=== PATIENT | female | born 1985 ===

== ENCOUNTER 2019-05-12 21:44 | Emergency (ER) | payer SELFPAY ==
[2019-05-12] MEDS ORDERED: ONDANSETRON 4 MG/2 ML VIAL ONE (23:25)
[2019-05-12] MEDS ORDERED: NA CHLORIDE 0.9% 1,000 ML ONE (23:25)
[2019-05-12 23:44] LABS: Absolute Lymphocytes (CBC) 2.2 K/uL (0.7-4.9); Basophils % 0.5 % (0-1.3); Hematocrit 37.1 % (36.0-45.0); Lymphocytes % 14.6 % (15.3-44.8); MPV 8.8 fL (7.6-11.3); RBC Red Blood Cell Count 4.42 M/uL (3.86-4.86)
[2019-05-12 23:52] LABS: Urine Blood 1+ (NEG); Urine Glucose NEGATIVE (NEG); Urine Protein 1+ (NEG)
[2019-05-13 00:03] LABS: Albumin 3.3 g/dL (3.4-5.0); Bilirubin Direct 0.2 mg/dL (0-0.2); Bilirubin Total 0.6 mg/dL (0.2-1.0); Potassium 3.5 mmol/L (3.5-5.1); Protein, Total 8.2 g/dL (6.4-8.2)
[2019-05-13 00:17] LABS: Urine Bacteria >50 /HPF (<20); Urine Culture Reflex Order REFLEXED; Urine RBC <5 /HPF (NONE SEEN)
--- NOTE | 2019-05-13 00:41 | ER ---
Nurse's Notes [facility] Name: Mahnaz Martins Age: 33 yrs Sex: Female : 1985 Arrival Date: 05/12/2019 Time: 21:47 Bed 23 Private MD: Diagnosis: Vomiting;Urinary tract infection, site not specified;Dehydration Presentation: 05/12 22:00 Presenting complaint: Patient states: yesterday i was at work i started to have chest mg2 and back pain, vomiting, nausea, diarrhea. Transition of care: patient was not received from another setting of care. Onset of symptoms was May 11, 2019. Risk Assessment: Do you want to hurt yourself or someone else? Patient reports no desire to harm self or others. Care prior to arrival: None. 22:00 Method Of Arrival: Ambulatory mg2 22:00 Acuity: JANICE 3 mg2 05/13 01:10 Initial Sepsis Screen: Does the patient meet any 2 criteria? No. Patient's initial ad1 sepsis screen is negative. Does the patient have a suspected source of infection? Yes: Other: fever No. Patient's initial sepsis screen is negative. [employer]: 05/12 22:02 LMP 05/11/2019 mg2 Historical: - Allergies: 22:03 No Known Allergies; mg2 - Home Meds: 22:03 None [Active]; mg2 - PMHx: 22:04 Hernia; mg2 - PSHx: 22:03 None; mg2 - Social history:: Smoking status: Patient/guardian denies using tobacco, Patient/guardian denies using alcohol, street drugs, IV drugs. - Ebola Screening: : No symptoms or risks identified at this time. Screenin/29 01:08 Abuse screen: Denies threats or abuse. Nutritional screening: No deficits noted. ad1 Tuberculosis screening: No symptoms or risk factors identified. Fall Risk None identified. Assessment: 05/12 00:00 Reassessment: Patient appears in no apparent distress at this time. Patient and/or ad1 family updated on plan of care and expected duration. Pain level reassessed. Patient is alert, oriented x 3, equal unlabored respirations, skin warm/dry/pink. 22:52 General: Appears uncomfortable, Behavior is calm, cooperative. Pain: Complains of pain ad1 in lower back bilateral. Neuro: No deficits noted. Level of Consciousness is Oriented to person, place, time, situation. Cardiovascular: No deficits noted. Cardiovascular:. Respiratory: No deficits noted. Airway is patent. GI: Reports nausea, vomiting. GI: Bowel sounds present X 4 quads. Abd is soft Abd is non tender. : Denies burning with urination. Vital Signs: 22:02 BP 106 / 77; Pulse 116; Resp 18; Temp 99.1; Pulse Ox 97% on R/A; Height 5 ft. 0 in. mg2 (152.40 cm); Pain 8/10; 22:58 BP 97 / 65; Pulse 109; Resp 18; Temp 98.7; Pulse Ox 97% ; ad1 05/13 00:40 BP 99 / 66; Pulse 89; Resp 18; Pulse Ox 96% ; ad1 ED Course: 05/12 21:47 Patient arrived in ED. cf2 22:02 Triage completed. mg2 22:04 Arm band placed on. mg2 23:17 Jensen Navarro MD is Attending Physician. gs 23:45 Urine collected: clean catch specimen, clear. aa1 05/13 01:09 No provider procedures requiring assistance completed. ad1 01:10 IV discontinued. ad1 01:11 Patient has correct armband on for positive identification. ad1 Administered Medications: 05/12 23:48 Drug: NS 0.9% 1000 ml Route: IV; Rate: 1 bolus; Site: right forearm; ad1 23:49 Drug: Zofran 4 mg Route: IVP; Site: right forearm; ad1 05/13 01:02 Drug: KeFLEX 1000 mg Route: PO; ad1 Outcome: 00:39 Discharge ordered by . 01:06 Discharged to home ad1 01:06 Condition: stable 01:06 Discharge instructions given to patient, Instructed on discharge instructions, follow up and referral plans. Demonstrated understanding of instructions, follow-up care. 01:06 Prescriptions given X 2. 01:12 Patient left the ED. ad1 Signatures: Karen Rausch RN RN aa1 Nicole Cartagena RN RN ad1 Jensen Navarro MD MD Christian Gallegos RN RN mg2 Kike Ventura cf2 Corrections: (The following items were deleted from the chart) 05/12 22:04 22:03 PMHx: None; mg2 mg2
--- NOTE | 2019-05-13 00:43 | EDPHYS ---
Physician Documentation [facility] Name: Mahnaz Martins Age: 33 yrs Sex: Female : 1985 Arrival Date: 05/12/2019 Time: 21:47 Bed 23 Private MD: ED Physician Jensen Navarro HPI: 05/13 00:23 This 33 yrs old Female presents to ER via Ambulatory with complaints of gs Nausea/Vomiting/Diarrhea, body pain. 00:23 The patient presents to the emergency department with nausea, vomiting, diarrhea. gs Onset: The symptoms/episode began/occurred yesterday. Possible causes: unknown. The symptoms are aggravated by nothing. The symptoms are alleviated by nothing. Associated signs and symptoms: Pertinent positives: epigastric and lower back pain. Severity of symptoms: At their worst the symptoms were severe in the emergency department the symptoms have improved markedly. The patient has experienced similar episodes in the past, a few times. The patient has not recently seen a physician. [facility]: 05/12 22:02 LMP 05/11/2019 mg2 Historical: - Allergies: 22:03 No Known Allergies; mg2 - Home Meds: 22:03 None [Active]; mg2 - PMHx: 22:04 Hernia; mg2 - PSHx: 22:03 None; mg2 - Social history:: Smoking status: Patient/guardian denies using tobacco, Patient/guardian denies using alcohol, street drugs, IV drugs. - Ebola Screening: : No symptoms or risks identified at this time. ROS: 05/13 00:23 All other systems are negative. gs Exam: 00:23 Head/Face: Normocephalic, atraumatic. Eyes: Pupils equal round and reactive to light, gs extra-ocular motions intact. Lids and lashes normal. Conjunctiva and sclera are non-icteric and not injected. Cornea within normal limits. Periorbital areas with no swelling, redness, or edema. ENT: Nares patent. No nasal discharge, no septal abnormalities noted. Tympanic membranes are normal and external auditory canals are clear. Oropharynx with no redness, swelling, or masses, exudates, or evidence of obstruction, uvula midline. Mucous membranes moist. Neck: Trachea midline, no thyromegaly or masses palpated, and no cervical lymphadenopathy. Supple, full range of motion without nuchal rigidity, or vertebral point tenderness. No Meningismus. Chest/axilla: Normal chest wall appearance and motion. Nontender with no deformity. No lesions are appreciated. 00:23 Cardiovascular: Regular rate and rhythm with a normal S1 and S2. No gallops, murmurs, or rubs. Normal PMI, no JVD. No pulse deficits. Respiratory: Lungs have equal breath sounds bilaterally, clear to auscultation and percussion. No rales, rhonchi or wheezes noted. No increased work of breathing, no retractions or nasal flaring. Abdomen/GI: Soft, non-tender, with normal bowel sounds. No distension or tympany. No guarding or rebound. No evidence of tenderness throughout. Back: No spinal tenderness. No costovertebral tenderness. Full range of motion. Skin: Warm, dry with normal turgor. Normal color with no rashes, no lesions, and no evidence of cellulitis. MS/ Extremity: Pulses equal, no cyanosis. Neurovascular intact. Full, normal range of motion. Neuro: Awake and alert, GCS 15, oriented to person, place, time, and situation. Cranial nerves II-XII grossly intact. Motor strength 5/5 in all extremities. Sensory grossly intact. Cerebellar exam normal. Normal gait. 00:23 Constitutional: The patient appears alert, awake. 00:23 Cardiovascular: Rate: tachycardic, Rhythm: regular, Pulses: no pulse deficits are appreciated. Vital Signs: 05/12 22:02 BP 106 / 77; Pulse 116; Resp 18; Temp 99.1; Pulse Ox 97% on R/A; Height 5 ft. 0 in. mg2 (152.40 cm); Pain 8/10; 22:58 BP 97 / 65; Pulse 109; Resp 18; Temp 98.7; Pulse Ox 97% ; ad1 05/13 00:40 BP 99 / 66; Pulse 89; Resp 18; Pulse Ox 96% ; ad1 MDM: 05/12 23:45 Patient medically screened. 05/13 00:23 Differential diagnosis: Nonspecific abd pain, viral gastroenteritis, gastroenteritis. Data reviewed: vital signs, nurses notes. Counseling: I had a detailed discussion with the patient and/or guardian regarding: the historical points, exam findings, and any diagnostic results supporting the discharge/admit diagnosis. Response to treatment: the patient's symptoms have markedly improved after treatment, epigastric(cp) positional and after vomiting. 05/12 23:18 Order name: Basic Metabolic Panel; Complete Time: 00:22 05/12 23:18 Order name: CBC with Diff; Complete Time: 00:22 05/12 23:18 Order name: Hepatic Function; Complete Time: 00:22 05/12 23:18 Order name: Lipase; Complete Time: 00:22 05/12 23:18 Order name: Urine Microscopic Only; Complete Time: 00:22 05/12 23:46 Order name: Urine Dipstick--Ancillary (enter results); Complete Time: 00:22 [facility] 05/12 23:18 Order name: IV Saline Lock 05/12 23:18 Order name: Labs collected and sent 05/12 23:18 Order name: Urine Test (obtain specimen); Complete Time: 23:46 05/12 23:46 Order name: Urine --Ancillary (enter results); Complete Time: 00:22 [facility] 05/13 00:23 Order name: Urine Culture [facility] 05/12 23:18 Order name: Urine Dipstick-Ancillary (obtain specimen); Complete Time: 23:46 Administered Medications: 05/12 23:48 Drug: NS 0.9% 1000 ml Route: IV; Rate: 1 bolus; Site: right forearm; ad1 23:49 Drug: Zofran 4 mg Route: IVP; Site: right forearm; ad1 05/13 01:02 Drug: KeFLEX 1000 mg Route: PO; ad1 Disposition: 05/13/19 00:39 Discharged to Home. Impression: Vomiting, Urinary tract infection, site not specified, Dehydration. - Condition is Stable. - Discharge Instructions: Nausea and Vomiting, Adult, Urinary Tract Infection, Adult, Rehydration, Adult. - Prescriptions for Keflex 500 mg Oral Capsule - take 1 capsule by ORAL route every 12 hours for 10 days; 20 capsule. Zofran 4 mg Oral Tablet - take 1 tablet by ORAL route every 12 hours As needed; 10 tablet. - Medication Reconciliation Form, Thank You Letter, Antibiotic Education, Prescription Opioid Use, Work release form form. - Follow up: Private Physician; When: 1 - 2 days; Reason: Re-evaluation by your physician. Signatures: Dispatcher [facility] Nicole Cartagena RN RN ad1 Jensen Navarro MD MD gs [place], Michele, RN RN mg2 Corrections: (The following items were deleted from the chart) 05/12 22:04 22:03 PMHx: None; mg2 mg2 05/13 01:12 00:39 05/13/2019 00:39 Discharged to Home. Impression: Vomiting; Urinary tract ad1 infection, site not specified; Dehydration. Condition is Stable. Forms are Medication Reconciliation Form, Thank You Letter, Antibiotic Education, Prescription Opioid Use. Follow up: Private Physician; When: 1 - 2 days; Reason: Re-evaluation by your physician. gs
[2019-05-13] MEDS ORDERED: CEPHALEXIN 250 MG CAP ONE (00:46)
[2019-05-13 01:17] VITALS: TEMP 98.7
[2019-05-13 01:18] VITALS: BP 99/66; O2SAT 96
== END 2019-05-13 01:12 | disposition home or self-care (01) ==
LOC: ER 21:44
DX: E86.0 Dehydration (principal); N39.0 Urinary tract infection, site not specified
CPT/HCPCS: 36415; 80048; 80076; 81003; 81015; 81025; 83690; 85025; 87077; 87086; 87088; 87186; 96374; 99283; J2405; J7030